=== PATIENT | male | born 1940 | race African-American/Black ===

== ENCOUNTER 2022-11-15 15:13 | Inpatient (IN) | payer BC, MEDICAID, OTHER ==
[~2022-11-15] VITALS: Ht 172.7 cm; Wt 90.0 kg
[2022-11-15] MEDS ORDERED: HYDROCODONE/ACETAMINOPHEN 5/325MG TABLET PO ONE (16:15)
[2022-11-15 21:46] LABS: BASOPHILS % 0.2 % (0.0-2.0); EOSINOPHILS % 0.2 % (0.0-5.0); HEMATOCRIT. 39.4 % (42.0-52.0); HEMOGLOBIN. 13.6 g/dL (14.0-18.0); LYMPHOCYTES % 20.2 % (20.0-50.0); MEAN CORPUSCULAR HEMOGLOBIN 30.4 pg (28.0-32.0); MEAN CORPUSCULAR VOLUME 87.8 fL (80.0-94.0); MONOCYTES % 8.4 % (2.0-8.0); PLATELET 166 x1000/uL (130-400); RED BLOOD CELL COUNT 4.49 mill/uL (4.7-6.1)
[2022-11-15 21:51] LABS: INR 1.1; PROTHROMBIN TIME 11.9 sec (9.6-11.0)
[2022-11-15 21:58] LABS: CHLORIDE 108 mEq/L (98-107)
[2022-11-16 00:30] VITALS: BP 164/101
[2022-11-16] MEDS ORDERED: ONDANSETRON HCL 4MG/2ML INJ IV PRN (01:30)
[2022-11-16] MEDS ORDERED: IPRATROPIUM/ALBUTEROL 0.5-3(2.5)MG/3ML NEB HHN PRN (01:30)
[2022-11-16] MEDS ORDERED: SODIUM CHLORIDE 0.9% 1,000 ML IV SCH (01:30)
[2022-11-16] MEDS ORDERED: DOCUSATE SODIUM 100MG CAPSULE PO PRN (01:30)
[2022-11-16] MEDS ORDERED: GUAIFENESIN 200MG/10ML SUGAR FREE UDC PO PRN (01:30)
[2022-11-16] MEDS ORDERED: ACETAMINOPHEN 325MG TABLET PO PRN (01:30)
[2022-11-16] MEDS ORDERED: HYDROCODONE/ACETAMINOPHEN 5/325MG TABLET PO PRN (01:30)
[2022-11-16] MEDS: CLONIDINE 0.1MG TABLET PO PRN ×2 (03:48→17:12)
[2022-11-16 04:00] VITALS: BP 208/117
[2022-11-16 08:00] VITALS: BP 193/119
[2022-11-16] MEDS: AMLODIPINE 5MG TABLET PO SCH ×2 (08:46→08:52)
[2022-11-16] MEDS: ENOXAPARIN 40MG/0.4ML SYR SUBCUT SCH (08:46)
[2022-11-16] MEDS ORDERED: AMLODIPINE 5MG TABLET PO SCH (09:00)
[2022-11-16] MEDS ORDERED: AMLODIPINE 10MG TABLET PO SCH (09:00)
[2022-11-16 09:10] LABS: CREATINE KINASE MB FRACTION 3.4 ng/mL (0.5-3.6)
[2022-11-16] MEDS ORDERED: HYDRALAZINE 20MG/ML VIAL IV NR (09:30)
[2022-11-16] MEDS ORDERED: NALOXONE HCL 0.4MG/ML VIAL IV PRN (09:45)
[2022-11-16] MEDS ORDERED: HYDROCODONE/ACETAMINOPHEN 10/325MG TABLET PO PRN (09:45)
[2022-11-16 12:00] VITALS: BP 156/96
[2022-11-16 13:02] LABS: CLARITY URINE CLEAR (CLEAR); COLOR URINE YELLOW (YELLOW); KETONES URINE NEGATIVE (NEGATIVE); LEUKOCYTE ESTERASE URINE NEGATIVE (NEGATIVE); NITRITE URINE NEGATIVE (NEGATIVE); OCCULT BLOOD URINE NEGATIVE (NEGATIVE); PROTEIN URINE NEGATIVE (NEGATIVE); SPECIFIC GRAVITY URINE 1.012 (1.005-1.030)
[2022-11-16 14:25] LABS: *AMPHETAMINES SCREEN URINE NEGATIVE (NEGATIVE); *BARBITURATES SCREEN URINE NEGATIVE (NEGATIVE); *BENZODIAZEPINES SCREEN URINE NEGATIVE (NEGATIVE); *COCAINE SCREEN URINE NEGATIVE (NEGATIVE); CANNABINOID URINE SCREEN NEGATIVE (NEGATIVE); METHADONE URINE SCREEN NEGATIVE (NEGATIVE); OPIATES URINE SCREEN NEGATIVE (NEGATIVE); PHENCYCLIDINE URINE SCREEN NEGATIVE (NEGATIVE)
[2022-11-16 16:00] VITALS: BP 163/92
[2022-11-16 20:00] VITALS: BP 186/100
[2022-11-16] MEDS: FAMOTIDINE 20MG TABLET PO SCH (21:48)
[2022-11-16] MEDS: AMLODIPINE 10MG TABLET PO SCH (21:48)
[2022-11-17] VITALS: BP 183/113
[2022-11-17] MEDS: CLONIDINE 0.1MG TABLET PO PRN ×2 (01:26→08:51)
[2022-11-17 04:00] VITALS: BP 155/106
[2022-11-17 06:24] LABS: BASOPHILS % 0.2 % (0.0-2.0); EOSINOPHILS % 0.2 % (0.0-5.0); HEMATOCRIT. 40.7 % (42.0-52.0); LYMPHOCYTES % 22.4 % (20.0-50.0); MEAN CORPUSCULAR HEMOGLOBIN 29.8 pg (28.0-32.0); MEAN CORPUSCULAR VOLUME 86.6 fL (80.0-94.0); MEAN PLATELET VOLUME 8.4 fl (7.4-10.4); MONOCYTES % 10.7 % (2.0-8.0); NEUTROPHILS % 66.5 % (40.0-76.0); PLATELET 169 x1000/uL (130-400); RED BLOOD CELL COUNT 4.69 mill/uL (4.7-6.1); RED CELL DISTRIBUTION WIDTH 15.1 % (11.6-14.6)
[2022-11-17 07:06] LABS: T4 FREE 1.09 ng/dL (0.76-1.46)
[2022-11-17 07:43] LABS: CHLORIDE 107 mEq/L (98-107)
[2022-11-17 08:00] VITALS: BP 186/109
[2022-11-17] MEDS: AMLODIPINE 10MG TABLET PO SCH ×2 (08:51→21:59)
[2022-11-17] MEDS: ENOXAPARIN 40MG/0.4ML SYR SUBCUT SCH (08:52)
[2022-11-17 12:00] VITALS: BP 125/88
[2022-11-17] MEDS: LOSARTAN POTASSIUM 100 MG TABLET PO SCH (13:10)
[2022-11-17 16:00] VITALS: BP 131/95
[2022-11-17 20:00] VITALS: BP 144/84
[2022-11-17] MEDS: FAMOTIDINE 20MG TABLET PO SCH (21:59)
[2022-11-18] VITALS: BP 148/105
[2022-11-18 04:00] VITALS: BP 144/99
[2022-11-18 05:33] LABS: BASOPHILS % 0.2 % (0.0-2.0); EOSINOPHILS % 0.4 % (0.0-5.0); HEMATOCRIT. 40.4 % (42.0-52.0); HEMOGLOBIN. 14.2 g/dL (14.0-18.0); LYMPHOCYTES % 21.2 % (20.0-50.0); MEAN CORPUSCULAR HEMOGLOBIN 30.6 pg (28.0-32.0); MEAN PLATELET VOLUME 8.1 fl (7.4-10.4); NEUTROPHILS % 66.2 % (40.0-76.0); PLATELET 172 x1000/uL (130-400); RED BLOOD CELL COUNT 4.65 mill/uL (4.7-6.1); RED CELL DISTRIBUTION WIDTH 14.7 % (11.6-14.6)
[2022-11-18 05:56] LABS: CHLORIDE 107 mEq/L (98-107)
[2022-11-18 08:00] VITALS: BP 147/103
[2022-11-18] MEDS: ENOXAPARIN 40MG/0.4ML SYR SUBCUT SCH (10:00)
[2022-11-18] MEDS: LOSARTAN POTASSIUM 100 MG TABLET PO SCH (10:01)
[2022-11-18] MEDS: AMLODIPINE 10MG TABLET PO SCH ×2 (10:01→21:23)
[2022-11-18 12:00] VITALS: BP 112/84
[2022-11-18 16:00] VITALS: BP 119/92
[2022-11-18 20:00] VITALS: BP 150/100
[2022-11-18] MEDS: FAMOTIDINE 20MG TABLET PO SCH (21:22)
[2022-11-19] VITALS: BP 134/95
[2022-11-19 04:00] VITALS: BP 116/84
[2022-11-19 08:00] VITALS: BP 100/74
[2022-11-19 08:30] VITALS: BP 134/86
== END 2022-11-19 10:15 | DRG 183 ==
LOC: ER 15:13 → MICUSO 22:29 → ENRESERV 23:20 → 7WST 11-16 00:04 → 6EST 11-17 18:34
PROVIDERS: ADMIT Hospitalist; ATTEND Hospitalist
DX: S22.42XA Multiple fractures of ribs, left side, initial encounter for closed fracture (principal); I21.4 Non-ST elevation (NSTEMI) myocardial infarction; I71.23 Aneurysm of the descending thoracic aorta, without rupture; Z20.822 Contact with and (suspected) exposure to COVID-19; I25.10 Atherosclerotic heart disease of native coronary artery without angina pectoris; I10 Essential (primary) hypertension; E11.65 Type 2 diabetes mellitus with hyperglycemia; W18.2XXA Fall in (into) shower or empty bathtub, initial encounter; Y93.E1 Activity, personal bathing and showering; Y92.002 Bathroom of unspecified non-institutional (private) residence as the place of occurrence of the external cause; Y99.8 Other external cause status
CPT/HCPCS: 36415; 71045; 71250; 80048; 80053; 80305; 81003; 82550; 82553; 84439; 84443; 84484; 85025; 87426; 93005; 93306; 93880; 97162; 97166; 99285; J0360; J1650